=== PATIENT | male | born 1985 | race African-American/Black ===

== ENCOUNTER 2018-02-03 10:34 | Emergency (ER) | payer OTHER ==
[~2018-02-03] VITALS: Ht 172.7 cm; Wt 119.5 kg
[2018-02-03] MEDS ORDERED: LORAZEPAM 2 MG/ML 1 ML VIAL IV STA (10:46)
[2018-02-03] MEDS ORDERED: LORAZEPAM 2 MG/ML 1 ML VIAL ONE (10:46)
[2018-02-03] MEDS ORDERED: NALOXONE HCL 0.4 MG/1 ML VIAL/CARP IV STA (10:48)
--- NOTE | 2018-02-03 10:49 | EMERGENCY ROOM VISIT NOTE ---
History Report prepared by Nazaninibcassia: Maria Fernanda Humphrey Under the Supervision of: Dr. Ajay Cee M.D. First contact with patient: 10:37 Stated Complaint: NA History of Present Illness The patient is a 32 year old male who presents to the Emergency Room via EMS and is currently unresponsive. The patient was found sitting on a bench at the group home and next time he was seen was face forward on the ground. The patient is still unresponsive upon arrival to the ED. Police found synthetic marijuana on his watch and suspect he was smoking it. EMS did an EKG which showed normal sinus rhythm with a rate of 60. The patient was taken immediately to CT scan. This HPI is limited secondary to mental status of the patient. Source of History: EMS History Limited By: AMS Review of Systems ROS limited secondary to patient's mental status. Past Medical & Surgical Unobtainable secondary to patient's mental status. Social History Unobtainable secondary to patient's mental status. Current/Historical Medications No Active Prescriptions or Reported Meds Allergies Coded Allergies: No Known Allergies (Unverified , 02/03/18) Physical Exam Vital Signs Date Time Temp Pulse Resp B/P (MAP) Pulse Ox O2 Delivery O2 Flow Rate FiO2 02/03/18 12:20 72 16 143/88 95 Room Air 02/03/18 12:12 58 18 146/88 96 Room Air 02/03/18 12:03 74 18 153/86 97 Room Air 02/03/18 11:52 70 18 94/86 100 Room Air 02/03/18 11:46 79 18 126/98 100 Room Air 02/03/18 11:37 75 18 129/95 97 Room Air 02/03/18 11:36 99 Room Air 02/03/18 11:36 99 Room Air 02/03/18 11:36 99 Room Air 02/03/18 10:59 59 17 151/81 100 Room Air 02/03/18 10:59 73 Physical Exam GENERAL: Awake, alert, well-appearing, in no acute distress. HENT: Normocephalic, atraumatic. Oropharynx unremarkable. EYES: Normal conjunctiva. Sclera non-icteric. NECK: Supple. No nuchal rigidity. FROM. No JVD. RESPIRATORY: Clear to auscultation. CARDIAC: Regular rate, normal rhythm. Extremities warm and well perfused. Pulses equal. ABDOMEN: Soft, non-distended. No tenderness to palpation. No rebound or guarding. No masses. RECTAL: Deferred. MUSCULOSKELETAL: Chest examination reveals no tenderness. The back is symmetrical on inspection without obvious abnormality. There is no CVA tenderness to palpation. No joint edema. LOWER EXTREMITIES: Calves are equal size bilaterally and non-tender. No edema. No discoloration. NEURO: Verbally unresponsive, does follow some simple commands, is not moving his right arm or right leg, appears to move leg arm and left leg in non- purposeful manner. SKIN: No rash or jaundice noted. Medical Decision & Procedures ER Provider Diagnostic Interpretation: Radiology results as stated below per my review and radiologist interpretation: HEAD WITHOUT CONTRAST (CT) CT DOSE: 2270.76 mGycm HISTORY: Altered mental status Pt c/o AMS TECHNIQUE: Multiaxial CT images of the head were performed without the use of intravenous contrast. A dose lowering technique was utilized adhering to the principles of ALARA. Comparison: None. Findings: The paranasal sinuses and mastoid air cells are clear. The calvarium and skull base are intact. The ventricles and sulci are within normal limits. There is no mass, hematoma, midline shift, acute/subacute infarct left occipital lobe. No evidence for acute intracranial hemorrhage. No evidence for midline shift. Impression: Subacute infarct left occipital lobe. No evidence for acute intracranial hemorrhage. The above report was generated using voice recognition software. It may contain grammatical, syntax or spelling errors. Electronically signed by: Robbie Casarez M.D. 02/03/2018 10:56 AM Dictated Date/Time: 02/03/2018 10:54 AM CHEST ONE VIEW PORTABLE HISTORY: Altered mental status. COMPARISON: None. FINDINGS: Low lung volumes. The cardiac silhouette is mildly enlarged. Mild perihilar interstitial and vascular thickening. This may be due to the AP portable technique. There may be a trace right pleural effusion. No left pleural effusion. No focal lung consolidations to suggest pneumonia. IMPRESSION: AP portable chest with low lung volumes. The apparent cardiomegaly and pulmonary vascular congestion is likely due to the overall poor inspiratory effort. However, developing congestive change could also have a similar appearance. Possible trace right pleural effusion. Electronically signed by: Can Young M.D. 02/03/2018 11:11 AM Dictated Date/Time: 02/03/2018 11:09 AM NECK ANGIO WITH CONTRAST CLINICAL HISTORY: 32 years-old Male presenting with unresponsive, right-sided weakness. TECHNIQUE: Multidetector CT angiography of the neck was performed after the administration of intravenous contrast. 3-D volumetric and/or maximum intensity projection (MIP) images were subsequently reconstructed for review. IV contrast: 117 mL of Optiray 320. A dose lowering technique was used consistent with the principles of ALARA (as low as reasonably achievable). Stenosis measurements were based on NASCET-like criteria. COMPARISON: Noncontrast CT head performed earlier today. CT DOSE (mGy.cm): The estimated cumulative dose is 744.02. FINDINGS: Silk Screen Repairer topogram: Unremarkable. Aortic arch: Motion related artifact at the ascending aorta related to nongated technique. Atherosclerosis of the three-vessel aortic arch with patent origins of the branch vessels. Innominate artery: Patent. Right subclavian artery: Patent. Right common carotid artery: Patent. Right internal and external carotid arteries: Right carotid bifurcation patent. Right internal and external carotid arteries widely patent. Left common carotid artery: Patent. Left internal and external carotid arteries: Left carotid bifurcation patent. Left internal and external carotid arteries widely patent. Left subclavian artery: Patent. Vertebral arteries: Right dominant vertebral artery. Origins and courses of the bilateral vertebral arteries patent. Other: Limited intracranial evaluation within normal limits. Soft tissues of the neck normal allowing for the phase of contrast. Normal cervical spine. Added density of the lungs. IMPRESSION: 1. No evidence of dissection, focal vessel occlusion, or significant stenosis of the cervical arteries. Electronically signed by: Chalino Connor M.D. 02/03/2018 11:33 AM Dictated Date/Time: 02/03/2018 11:29 AM HEAD CTA HISTORY: Unresponsive. Right-sided weakness. Left occipital lobe abnormality. TECHNIQUE: Multiaxial CT images of the head were performed both before and after the intravenous administration of contrast to evaluate the major cerebral vessels. Maximum intensity projection images were also obtained. A dose lowering technique was utilized adhering to the principles of ALARA. COMPARISON: Head CT 02/03/2018. FINDINGS: The calvarium and skull base are intact. Paranasal sinuses and mastoid air cells are clear. The left occipital lobe hypodensity is better appreciated on the same day noncontrast head CT. The major dural venous sinuses are not well opacified and therefore not well evaluated. Visualized intracranial internal carotid arteries, distal vertebral arteries, and basilar artery are widely patent. There is no significant stenosis, occlusion, or aneurysm seen within the bilateral ACAs or vocational nursing instructor. The right MCA is patent. Focal cutoff within the proximal left MCA consistent with a site of occlusion. Significantly diminished perfusion within the left MCA territory vessels consistent with a large MCA territory infarct. No hemorrhage or midline shift at this time. IMPRESSION: Focal cutoff within the proximal left MCA consistent with a site of occlusion. Significantly diminished perfusion within the left MCA territory vessels consistent with a large MCA territory infarct. These findings were discussed with Dr. Cee at 11:35 AM and 02/03/2018. Electronically signed by: Can Young M.D. 02/03/2018 11:37 AM Dictated Date/Time: 02/03/2018 11:30 AM Laboratory Results 02/03/18 11:03 Red Blood Count 5.94, Mean Corpuscular Volume 78.3, Mean Corpuscular Hemoglobin 27.4, Mean Corpuscular Hemoglobin Concent 35.1, Mean Platelet Volume 9.8, Neutrophils (%) (Auto) 54.2, Lymphocytes (%) (Auto) 28.4, Monocytes (%) (Auto) 13.7, Eosinophils (%) (Auto) 2.7, Basophils (%) (Auto) 0.5, Neutrophils # (Auto ) 3.24, Lymphocytes # (Auto) 1.70, Monocytes # (Auto) 0.82, Eosinophils # (Auto ) 0.16, Basophils # (Auto) 0.03 02/03/18 11:03 Test 02/03/18 11:03 02/03/18 11:05 02/03/18 11:08 White Blood Count 5.98 K/uL (4.8-10.8) Red Blood Count 5.94 M/uL (4.7-6.1) Hemoglobin 16.3 g/dL (14.0-18.0) Hematocrit 46.5 % (42-52) Mean Corpuscular Volume 78.3 fL (80-100) Mean Corpuscular Hemoglobin 27.4 pg (25-34) Mean Corpuscular Hemoglobin Concent 35.1 g/dl (32-36) Platelet Count 274 K/uL (130-400) Mean Platelet Volume 9.8 fL (7.4-10.4) Neutrophils (%) (Auto) 54.2 % Lymphocytes (%) (Auto) 28.4 % Monocytes (%) (Auto) 13.7 % Eosinophils (%) (Auto) 2.7 % Basophils (%) (Auto) 0.5 % Neutrophils # (Auto) 3.24 K/uL (1.4-6.5) Lymphocytes # (Auto) 1.70 K/uL (1.2-3.4) Monocytes # (Auto) 0.82 K/uL (0.11-0.59) Eosinophils # (Auto) 0.16 K/uL (0-0.5) Basophils # (Auto) 0.03 K/uL (0-0.2) RDW Standard Deviation 41.2 fL (36.4-46.3) RDW Coefficient of Variation 14.5 % (11.5-14.5) Immature Granulocyte % (Auto) 0.5 % Immature Granulocyte # (Auto) 0.03 K/uL (0.00-0.02) Prothrombin Time 10.1 SECONDS (9.0-12.0) Prothromb Time International Ratio 1.0 (0.9-1.1) Activated Partial Thromboplast Time 23.9 SECONDS (21.0-31.0) Partial Thromboplastin Ratio 0.9 Est Creatinine Clear Calc Drug Dose 84.9 ml/min Estimated GFR () 67.2 Estimated GFR (Non- 58.0 BUN/Creatinine Ratio 6.9 (10-20) Calcium Level 9.2 mg/dl (8.5-10.1) Phosphorus Level 2.5 mg/dl (2.5-4.9) Magnesium Level 2.0 mg/dl (1.8-2.4) Thyroid Stimulating Hormone (TSH) 1.740 uIu/ml (0.300-4.500) Bedside Hemoglobin 17.0 g/dl (14.0-18.0) Bedside Hematocrit 50 % (42-52) Bedside Sodium 140 mEq/L (135-144) Bedside Potassium 4.0 mEq/L (3.3-5.0) Bedside Chloride 103 mEq/L (101-112) Bedside Total CO2 23 mEq/l (24-31) Anion Gap 20.0 mmol/L (16-25) Bedside Blood Urea Nitrogen 11 mg/dl (7-18) Bedside Creatinine 1.4 mg/dl (0.6-1.3) Bedside Glucose (other) 113 mg/dl (70-99) Bedside Ionized Calcium (Virgil) 1.18 mmol/l (1.12-1.32) Bedside Prothrombin Time INR 1.0 (0.9-1.1) Labs reviewed by ED physician. Medications Administered Medications (Trade) Dose Ordered Sig/Joanne Route Start Time Stop Time Status Last Admin Dose Admin Naloxone HCl (Narcan Inj) 0.4 mg NOW STAT IV 02/03/18 10:48 02/03/18 10:49 DC 02/03/18 11:07 0.4 MG Sodium Chloride 1,000 ml @ 999 mls/hr Q1H1M STAT IV 02/03/18 11:04 02/03/18 12:04 DC 02/03/18 11:36 999 MLS/HR Magnesium Sulfate (Magnesium Sulfate 1gm / D5W) 1 gm NOW STAT IV 02/03/18 11:04 02/03/18 11:06 DC 02/03/18 11:36 1 GM Alteplase, Recombinant 81 mg/ Empty Bag 81 ml @ 81 mls/hr TODAY@1145 IV 02/03/18 11:45 02/03/18 13:20 DC 02/03/18 11:39 81 MLS/HR Alteplase, Recombinant 9 mg/ Syringe 9 ml @ 9 mls/min TODAY@1145 IV 02/03/18 11:45 02/03/18 13:20 DC 02/03/18 11:39 9 MLS/MIN ECG Per My Interpretation Indication: other (AMS) Rate (beats per minute): 78 Rhythm: sinus rhythm Findings: 1st degree AV block, other (no ST elevation or depression) ED Course 1038: Past medical records reviewed. The patient was evaluated in room B1. A complete history and physical examination was performed. 1115: I consulted with Dr. De Anda, [facility]. I discussed the patient's case with him. He states he will call back shortly. 1125: Dr. De Anda agrees to evaluate the patient for further management and care. 1130: The patient is being transferred to [facility] for further treatment. Medical Decision Differential diagnosis: Etiologies such as metabolic, infection, hypo/hyperglycemia, electrolyte abnormalities, cardiac sources, intracerebral event, toxicologic, neurologic, as well as others were entertained. This is a 32-year-old male who arrives to the emergency department minimally responsive. Upon arrival to the emergency department the the patient is not moving the right side of his body. He appears to be in moderate distress. For this reason he was sent immediately for CAT scan of the head. This was concerning for an occipital lobe infarct. Based on these findings and with the continued findings on physical examination of the patient he was immediately sent back for CTA of the head and neck and a stroke alert was initiated. Patient's CTA of the head was concerning for a left MCA infarct. At this point TPA was mixed up. Exclusionary criteria for TPA was reviewed. Both myself and Dr De Anda feel that this patient will have a poor prognosis without immediate TPA therefore double physician consent was obtained for this patient that cannot express his wishes. The patient is 32 years old has an elevation in his hemoglobin and was also smoking synthetic marijuana while weightlifting and I suspect this contributed to his symptoms. Based on the findings of the CTA [facility] was initiated to bring the patient to [facility] for further stroke care. Caretakers were in agreement with the treatment plan. Medication Reconcilliation Current Medication List: was personally reviewed by me Blood Pressure Screening Patient's blood pressure: Elevated blood pressure (monitor by acute care facility) Consults Time Called: 1110 Consulting Physician: [facility] Returned Call: [address] De Anda, [facility]. I discussed the patient's case with him. He states he will call back shortly. Additional Consults: Time Called: 1110 Consulted Physician: [facility] Returned Call: 1125 Additional Comments: Dr. De Anda agrees to evaluate the patient for further management and care. Impression Primary Impression: Left-sided cerebrovascular accident (CVA) Critical Care I have personally spent greater than 90 minutes of critical care time in the direct management of this patient. This includes bedside care, interpretation of diagnostic studies, and testing, discussion with consultants, patient, and family members, and other required patient management activities. This 90 minutes is in excess of all separately billable procedures. Scribe Attestation The scribe's documentation has been prepared under my direction and personally reviewed by me in its entirety. I confirm that the note above accurately reflects all work, treatment, procedures, and medical decision making performed by me. Departure Information Dispostion Transfer Acute Care Facility Prescriptions No Active Prescriptions or Reported Meds Referrals [facility] (PCP)
--- NOTE | 2018-02-03 10:57 | DIAGNOSTIC IMAGING REPORT ---
HEAD WITHOUT CONTRAST (CT) CT DOSE: 2270.76 mGycm HISTORY: Altered mental status Pt c/o AMS TECHNIQUE: Multiaxial CT images of the head were performed without the use of intravenous contrast. A dose lowering technique was utilized adhering to the principles of ALARA. Comparison: None. Findings: The paranasal sinuses and mastoid air cells are clear. The calvarium and skull base are intact. The ventricles and sulci are within normal limits. There is no mass, hematoma, midline shift, acute/subacute infarct left occipital lobe. No evidence for acute intracranial hemorrhage. No evidence for midline shift. Impression: Subacute infarct left occipital lobe. No evidence for acute intracranial hemorrhage. The above report was generated using voice recognition software. It may contain grammatical, syntax or spelling errors. Electronically signed by: Robbie Casarez M.D. 02/03/2018 10:56 AM Dictated Date/Time: 02/03/2018 10:54 AM
[2018-02-03 10:59] VITALS: Ht 172.7 cm; Wt 119.5 kg
[2018-02-03] MEDS ORDERED: SODIUM CHLORIDE 0.9% 1000ML 1,000 ML IV STA (11:04)
[2018-02-03] MEDS ORDERED: MAGNESIUM SULFATE 1GM / D5W 1 GM BAG IV STA (11:04)
--- NOTE | 2018-02-03 11:12 | DIAGNOSTIC IMAGING REPORT ---
CHEST ONE VIEW PORTABLE HISTORY: Altered mental status. COMPARISON: None. FINDINGS: Low lung volumes. The cardiac silhouette is mildly enlarged. Mild perihilar interstitial and vascular thickening. This may be due to the AP portable technique. There may be a trace right pleural effusion. No left pleural effusion. No focal lung consolidations to suggest pneumonia. IMPRESSION: AP portable chest with low lung volumes. The apparent cardiomegaly and pulmonary vascular congestion is likely due to the overall poor inspiratory effort. However, developing congestive change could also have a similar appearance. Possible trace right pleural effusion. Electronically signed by: Can Young M.D. 02/03/2018 11:11 AM Dictated Date/Time: 02/03/2018 11:09 AM
[2018-02-03 11:14] LABS: BASO % 0.5 %; BASO ABS # 0.03 K/uL (0-0.2); EOS % 2.7 %; EOS ABS # 0.16 K/uL (0-0.5); HEMATOCRIT 46.5 % (42-52); HEMOGLOBIN 16.3 g/dL (14.0-18.0); IG# 0.03 K/uL (0.00-0.02); LYMPH % 28.4 %; MEAN CELL VOLUME 78.3 fL (80-100); MEAN CORPUSCULAR HEMOGLOBIN 27.4 pg (25-34); MEAN CORPUSCULAR HGB CONC 35.1 g/dl (32-36); MEAN PLATELET VOLUME 9.8 fL (7.4-10.4); MONO % 13.7 %; MONO ABS # 0.82 K/uL (0.11-0.59); NEUT % 54.2 %; NEUT ABS # 3.24 K/uL (1.4-6.5); PLATELET COUNT 274 K/uL (130-400); RED CELL DISTRIBUTION WIDTH CV 14.5 % (11.5-14.5); RED CELL DISTRIBUTION WIDTH SD 41.2 fL (36.4-46.3); WHITE BLOOD COUNT 5.98 K/uL (4.8-10.8)
[2018-02-03 11:20] LABS: ISTAT CREATININE 1.4 mg/dl (0.6-1.3); ISTAT IONIZED CALCIUM 1.18 mmol/l (1.12-1.32)
--- NOTE | 2018-02-03 11:34 | DIAGNOSTIC IMAGING REPORT ---
NECK ANGIO WITH CONTRAST CLINICAL HISTORY: 32 years-old Male presenting with unresponsive, right-sided weakness. TECHNIQUE: Multidetector CT angiography of the neck was performed after the administration of intravenous contrast. 3-D volumetric and/or maximum intensity projection (MIP) images were subsequently reconstructed for review. IV contrast: 117 mL of Optiray 320. A dose lowering technique was used consistent with the principles of ALARA (as low as reasonably achievable). Stenosis measurements were based on NASCET-like criteria. COMPARISON: Noncontrast CT head performed earlier today. CT DOSE (mGy.cm): The estimated cumulative dose is 744.02. FINDINGS: Pen Maker topogram: Unremarkable. Aortic arch: Motion related artifact at the ascending aorta related to nongated technique. Atherosclerosis of the three-vessel aortic arch with patent origins of the branch vessels. Innominate artery: Patent. Right subclavian artery: Patent. Right common carotid artery: Patent. Right internal and external carotid arteries: Right carotid bifurcation patent. Right internal and external carotid arteries widely patent. Left common carotid artery: Patent. Left internal and external carotid arteries: Left carotid bifurcation patent. Left internal and external carotid arteries widely patent. Left subclavian artery: Patent. Vertebral arteries: Right dominant vertebral artery. Origins and courses of the bilateral vertebral arteries patent. Other: Limited intracranial evaluation within normal limits. Soft tissues of the neck normal allowing for the phase of contrast. Normal cervical spine. Added density of the lungs. IMPRESSION: 1. No evidence of dissection, focal vessel occlusion, or significant stenosis of the cervical arteries. Electronically signed by: Chalino Connor M.D. 02/03/2018 11:33 AM Dictated Date/Time: 02/03/2018 11:29 AM
[2018-02-03 11:36] VITALS: O2SAT 99
[2018-02-03 11:36] LABS: PTT PATIENT 23.9 SECONDS (21.0-31.0)
--- NOTE | 2018-02-03 11:39 | DIAGNOSTIC IMAGING REPORT ---
HEAD CTA HISTORY: Unresponsive. Right-sided weakness. Left occipital lobe abnormality. TECHNIQUE: Multiaxial CT images of the head were performed both before and after the intravenous administration of contrast to evaluate the major cerebral vessels. Maximum intensity projection images were also obtained. A dose lowering technique was utilized adhering to the principles of ALARA. COMPARISON: Head CT 02/03/2018. FINDINGS: The calvarium and skull base are intact. Paranasal sinuses and mastoid air cells are clear. The left occipital lobe hypodensity is better appreciated on the same day noncontrast head CT. The major dural venous sinuses are not well opacified and therefore not well evaluated. Visualized intracranial internal carotid arteries, distal vertebral arteries, and basilar artery are widely patent. There is no significant stenosis, occlusion, or aneurysm seen within the bilateral ACAs or lighter captain. The right MCA is patent. Focal cutoff within the proximal left MCA consistent with a site of occlusion. Significantly diminished perfusion within the left MCA territory vessels consistent with a large MCA territory infarct. No hemorrhage or midline shift at this time. IMPRESSION: Focal cutoff within the proximal left MCA consistent with a site of occlusion. Significantly diminished perfusion within the left MCA territory vessels consistent with a large MCA territory infarct. These findings were discussed with Dr. Cee at 11:35 AM and 02/03/2018. Electronically signed by: Can Young M.D. 02/03/2018 11:37 AM Dictated Date/Time: 02/03/2018 11:30 AM
[2018-02-03 11:44] LABS: CALCIUM 9.2 mg/dl (8.5-10.1); CREATININE 1.54 mg/dl (0.60-1.40); PHOSPHORUS 2.5 mg/dl (2.5-4.9); POTASSIUM 3.9 mmol/L (3.5-5.1)
[2018-02-03] MEDS ORDERED: ALTEPLASE, RECOMBINANT INJ 9 MG in SYRINGE 0 ML IV SCH (11:45)
[2018-02-03] MEDS ORDERED: SET 2260-0500 IV SCH (11:45)
[2018-02-03] MEDS ORDERED: ALTEPLASE, RECOMBINANT INJ 81 MG in EMPTY BAG 0 ML IV SCH (11:45)
[2018-02-03 12:20] VITALS: BP 143/88; PULSE 72; O2SAT 95
== END 2018-02-03 12:40 | disposition short-term general hospital (02) ==
LOC: EDBD 10:34 → C.EDB 10:36
DX: I63.9 Cerebral infarction, unspecified (principal)